=== PATIENT | male | born 1940 | race Caucasian/White ===

== ENCOUNTER 2018-10-27 16:22 | Emergency (ER) | payer MEDICARE ==
[2018-10-27] MEDS ORDERED: EPINEPHrine 1 MG/ML SDV IM ONE (16:59)
[2018-10-27] MEDS ORDERED: diphenhydrAMINE 50 MG/ML SDV IM ONE (16:59)
[2018-10-27] MEDS ORDERED: predniSONE 20 MG Tab PO STA (16:59)
[2018-10-27] MEDS ORDERED: Famotidine 20 MG Tab PO ONE (17:00)
--- NOTE | 2018-10-27 17:03 | EDM.PDOC ---
ED HPI GENERAL MEDICAL PROBLEM - General Chief Complaint: Bite:Animal, Insect Stated Complaint: BEE STING Time Seen by Provider: 10/27/18 17:00 Source of Information: Reports: Patient, Family, RN Notes Reviewed History Limitations: Reports: No Limitations - History of Present Illness INITIAL COMMENTS - FREE TEXT/NARRATIVE: 78-year-old gentleman presents emergency department today following multiple wasp stings he does have some swelling in his face and lips is denying any difficulty breathing or problems swallowing he received multiple stings both arms and over his trunk he's now developed erythema both anterior and posterior on the trunk - Related Data Allergies Allergy/AdvReac Type Severity Reaction Status Date / Time No Known Drug Allergies Allergy Unknown Other Verified 10/27/18 16:58 Home Meds: Home Meds Finasteride 5 mg PO DAILY 10/27/18 [History] Flecainide [Tambocor] 100 mg PO Q12H 10/27/18 [History] Metoprolol Succinate [Toprol XL] 25 mg PO DAILY 10/27/18 [History] Simvastatin 10 mg PO DAILY 10/27/18 [History] Warfarin Sodium [Coumadin] 1.5 tab PO DAILY 10/27/18 [History] Past Medical History HEENT History: Reports: Allergic Rhinitis Cardiovascular History: Reports: Afib, High Cholesterol Gastrointestinal History: Reports: Hemorrhoids Genitourinary History: Reports: BPH Neurological History: Reports: Concussion Oncologic (Cancer) History: Reports: Malignant Melanoma Dermatologic History: Reports: Other (See Below) Other Dermatologic History: melanoma - Past Surgical History HEENT Surgical History: Reports: Cataract Surgery, Tonsillectomy Cardiovascular Surgical History: Reports: None GI Surgical History: Reports: None, Hernia Repair/Other Musculoskeletal Surgical History: Reports: Other (See Below) Other Musculoskeletal Surgeries/Procedures:: back surgery, disk repair Social & Family History - Family History Family Medical History: Noncontributory - Tobacco Use Smoking Status *Q: Never Smoker - Caffeine Use Caffeine Use: Reports: Tea - Recreational Drug Use Recreational Drug Use: No ED ROS GENERAL - Review of Systems Review Of Systems: See Below Constitutional: Reports: No Symptoms HEENT: Reports: No Symptoms Respiratory: Reports: No Symptoms Cardiovascular: Reports: No Symptoms GI/Abdominal: Reports: No Symptoms Skin: Reports: Pruritis, Rash, Change in Color, Other (Edema) ED EXAM, ANIMAL BITE - Physical Exam Exam: See Below Text/Narrative:: Integument, erythematous rash anterior posterior trunk and upper extremities mild to moderate amount of edema over the lips erythema on the left side of the face Exam Limited By: No Limitations General Appearance: Alert, WD/WN, No Apparent Distress Respiratory/Chest: No Respiratory Distress, Lungs Clear, Normal Breath Sounds, No Accessory Muscle Use, Chest Non-Tender Cardiovascular: Regular Rate, Rhythm, No Murmur GI/Abdominal: Soft, Non-Tender Course - Vital Signs Last Recorded V/S: Last Vital Signs Temp 97.8 F 10/27/18 16:42 Pulse 67 10/27/18 16:42 Resp 16 10/27/18 16:42 BP 111/65 10/27/18 16:42 Pulse Ox 98 10/27/18 16:42 - Orders/Labs/Meds Meds: Medications Discontinued Medications Generic Name Dose Route Start Last Admin Trade Name Broq PRN Reason Stop Dose Admin Diphenhydramine HCl 50 mg 10/27/18 16:59 10/27/18 17:11 Benadryl IM 10/27/18 17:00 50 mg ONETIME ONE Administration Epinephrine HCl 0.3 mg 10/27/18 16:59 10/27/18 17:03 Adrenalin IM 10/27/18 17:00 0.3 mg ONETIME ONE Administration Famotidine 20 mg 10/27/18 17:00 10/27/18 17:13 Pepcid PO 10/27/18 17:01 20 mg ONETIME ONE Administration Prednisone 60 mg 10/27/18 16:59 10/27/18 17:13 Prednisone PO 10/27/18 17:00 60 mg NOW STA Administration Departure - Departure Time of Disposition: 20:14 Disposition: Home, Self-Care 01 Condition: Fair Clinical Impression: Allergic reaction to bee sting - Discharge Information Referrals: PCP,None [Primary Care Provider] - Forms: ED Department Discharge Additional Instructions: continue to use Benadryl as needed for symptomatic relief, Please followup with your primary care provider in 3-5 days if not better, please call return to the emergency department with worsening of symptoms. - Assessment/Plan Plan: Assessment Acuity = acute Site and laterality = allergic reaction Etiology = secondary to wasp sting Manifestations = hives now resolved Location of injury = Home Lab values = none Plan He received 2.3 mg epinephrine IM, 50 mg Benadryl IM 20 mg Pepcid and 60 mg prednisone by mouth he had significant improvement after treatment plan is continued observation the ED and then discharged home follow-up primary care as needed discussed the need for an EpiPen he declined at this time felt his reaction was due to the multiple stings as he has been stung in the past he had no shortness of breath or throat swelling] This note was dictated using [employer] voice recognition software please call with any questions on syntax or grammar.
== END 2018-10-27 19:57 | disposition home or self-care (01) ==
LOC: JP.ED 16:22
DX: T63.461A Toxic effect of venom of wasps, accidental (unintentional), initial encounter (principal); E78.00 Pure hypercholesterolemia, unspecified; I48.91 Unspecified atrial fibrillation; Z79.899 Other long term (current) drug therapy; Z79.01 Long term (current) use of anticoagulants
CPT/HCPCS: 96372; 99282; A9270; J0171; J1200